=== PATIENT | male | born 1950 | race Caucasian/White ===

== ENCOUNTER 2017-05-12 06:54 | Emergency (ER) | payer MEDICARE, BC ==
[2017-05-12] MEDS ORDERED: Nitroglycerin 0.4 MG TAB (25 Tab Bottle) ONE (07:07)
[2017-05-12] MEDS ORDERED: Nitroglycerin 2% Ointment 1 INCH/1 GM Packet ONE ×2 (07:22→07:23)
[2017-05-12 07:32] LABS: ALT (SGPT) 20 U/L (8-55); AST (SGOT) 18 U/L (5-34); Alkaline Phosphatase 104 U/L (40-150); Anion Gap 13 mmol/L (10-20); BUN (Urea Nitrogen) 11 mg/dL (8.4-25.7); Bilirubin, Total 0.8 mg/dL (0.2-1.2); Calc. Creatinine Clearance 0 mL/min (70-130); Calcium 9.5 mg/dL (7.8-10.44); Carbon Dioxide 26 mmol/L (23-31); Chloride 104 mmol/L (98-107); Estimated GFR-MDRD 80; Globulin 3.3 g/dL (2.4-3.5); Glucose 111 mg/dL (80-115); Potassium 3.9 mmol/L (3.5-5.1); Protein, Total 7.3 g/dL (5.8-8.1); Sodium 139 mmol/L (136-145)
[2017-05-12 07:34] LABS: Troponin I Less than 0.010 ng/mL (< 0.028)
[2017-05-12 07:40] LABS: Hemoglobin 15.9 g/dL (14.0-18.0); Mean Corpuscular HGB CONC 37.3 g/dL (32.0-36.0); Mean Corpuscular Hemoglobin 34.3 pg (27.0-31.0); Mean Platelet Volume 9.8 fL (7.4-10.4); Platelet Count 168 thou/uL (130-400); Red Blood Cell (RBC) Count 4.65 mill/uL (4.70-6.10); White Blood Cell (WBC) Count 5.8 thou/uL (4.8-10.8)
[2017-05-12 08:02] LABS: #Basophils 0.1 thou/uL (0.0-0.2); #Eosinphils 0.1 thou/uL (0.0-0.7); #Lymphocytes 1.7 thou/uL (1.20-3.40); #Monocytes 0.5 thou/uL (0.11-0.59); #Neutrophils 3.4 thou/uL (1.40-6.50); %Basophils 1.5 % (0.0-1.0); %Eosinophils 1.4 % (0.0-10.0); %Lymphocytes 29.3 % (21.0-51.0); %Monocytes 8.7 % (0.0-10.0); %Neutrophils 59.2 % (42.0-75.0); Anisocytosis SLIGHT = 6-15 cells (100X) (0-5/hpf); MDiff Complete? YES
--- NOTE | 2017-05-12 09:47 | RAD ---
PORTABLE CHEST: Date: 05-12-17 Time: 0659 Comparison: 10-10-12 FINDINGS: The heart is normal in size. There has been prior surgery as evidenced by median sternotomy sutures. Dense calcification is seen in the aortic arch. There is no vascular congestion, edema, or pleural ef fusion. There is a slight amount of linear streaking in the left base. It seems more likely atelectas is than not, though a true infiltrate is not excluded. Correlate with clinical exam and history. IMPRESSION: Minor left basilar streaking thought to be more likely atelectasis than not. See above. POS: HOME
[2017-05-12 10:28] LABS: Troponin I Less than 0.010 ng/mL (< 0.028)
== END 2017-05-12 10:52 | disposition home or self-care (01) ==
LOC: BURERS 06:54
DX: M79.601 Pain in right arm (principal); E78.5 Hyperlipidemia, unspecified; I10 Essential (primary) hypertension
CPT/HCPCS: 36415; 71045; 80053; 82553; 84484; 85025; 93005

== ENCOUNTER 2018-06-25 08:59 | Outpatient (CLI) | payer MEDICARE, BC ==
--- NOTE | 2018-06-25 17:40 | ULT ---
ABDOMINAL AORTA ULTRASOUND 06/25/18 Ultrasonography of the abdominal aorta was performed. There is some slight dilation of the distal abd ominal aorta prior to the bifurcation. Measurements by level are provided below: Proximal aorta: 2.0 x 1.8 cm. Mid aorta: 1.7 x 1.7 cm. Distal aorta: 2.1 x 2.4 cm. The bifurcation was unremarkable and blood flow was seen in the iliac arteries. IMPRESSION: Slight dilation of the distal abdominal aorta (maximum width 2.4 cm) which could represent early mini mal aneurysm formation. The current measurement is not concerning. I would recommend a yearly follow- up scan to recheck the area. POS: HOME
--- NOTE | 2018-06-25 17:51 | CT ---
CT OF THE ABDOMEN WITH CONTRAST 06/25/[address] of the abdomen and pelvis was done after injection of IV contrast. Axial slices were acquir ed, followed by coronal and sagittal reconstructions. The lung bases show some scarring and atelectasis. There are no effusions. The liver is normal in size but contains a 7.0 x 2.7 cm cyst in the anterior part of the medial right lobe. The gallbladder is generous in size measuring just over 8 cm in length, but no stones or wall thickening was seen associated with it. The pancreas, spleen, and adrenal glands appeared normal. No mass or hydronephrosis was seen in the kidneys. The abdominal aorta transiently dilates in its distal portion a few centimeters below the renal arter ies. As this scan does not include the pelvis, one only sees the proximal iliac arteries. The right c ommon iliac artery was normal in size. The left common iliac was 2.0 cm in diameter which is slightly larger. The celiac artery fills normally. The SMA fills normally but has a rather large amount of ca lcified plaque in its proximal most portions. Some plaque is seen at the origin of the right renal ar melissa. The BRENT fills. The visible portions of the bowel showed no wall thickening, dilation, or acute changes of concern. IMPRESSION: 1. Somewhat generous sized gallbladder which may or may not be significant. If the patient has s igns and symptoms of gallbladder dysfunction, then a HIDA scan might be helpful. 2. Large hepatic cyst. 3. Quite a bit of calcified plaque in the proximal portions of the SMA, though currently the SMA branches appear to fill adequately. 4. 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 Maximal wid th is only 2.4 cm at this length. Yearly follow-up suggested. POS: HOME
== END 2018-06-25 09:00 | disposition home or self-care (01) ==
LOC: BURCT 08:59
PROVIDERS: ATTEND Family Medicine
DX: I71.4 Abdominal aortic aneurysm, without rupture (principal); R10.13 Epigastric pain; K76.89 Other specified diseases of liver; K55.1 Chronic vascular disorders of intestine
CPT/HCPCS: 74160; 76706

== ENCOUNTER 2018-11-27 00:25 | Emergency (ER) | payer MEDICARE, BC ==
[2018-11-27 01:03] LABS: #Basophils 0.1 thou/uL (0.0-0.2); #Lymphocytes 1.1 thou/uL (1.20-3.40); #Monocytes 0.8 thou/uL (0.11-0.59); #Neutrophils 7.7 thou/uL (1.40-6.50); %Basophils 0.9 % (0.0-1.0); %Eosinophils 0.4 % (0.0-10.0); %Lymphocytes 11.2 % (21.0-51.0); %Monocytes 8.2 % (0.0-10.0); %Neutrophils 79.3 % (42.0-75.0); Hemoglobin 14.9 g/dL (14.0-18.0); Mean Corpuscular HGB CONC 34.7 g/dL (32.0-36.0); Mean Corpuscular Hemoglobin 32.3 pg (27.0-31.0); Mean Corpuscular Volume 93.2 fL (78.0-98.0); Mean Platelet Volume 9.2 fL (7.4-10.4); Platelet Count 189 thou/uL (130-400); RBC Distribution Width 11.5 % (11.5-14.5); White Blood Cell (WBC) Count 9.7 thou/uL (4.8-10.8)
[2018-11-27 01:15] LABS: ALT (SGPT) 24 U/L (8-55); AST (SGOT) 25 U/L (5-34); Albumin 4.1 g/dL (3.4-4.8); Alkaline Phosphatase 97 U/L (40-110); Anion Gap 20 mmol/L (10-20); BUN (Urea Nitrogen) 9 mg/dL (8.4-25.7); Bilirubin, Total 1.5 mg/dL (0.2-1.2); Calc. Creatinine Clearance 0 mL/min (70-130); Calcium 10.2 mg/dL (7.8-10.44); Carbon Dioxide 23 mmol/L (23-31); Chloride 101 mmol/L (98-107); Estimated GFR-MDRD Greater than 90; Globulin 3.9 g/dL (2.4-3.5); Glucose 109 mg/dL (80-115); Potassium 3.6 mmol/L (3.5-5.1); Sodium 140 mmol/L (136-145)
[2018-11-27] MEDS ORDERED: Phenylephrine HCL 10 MG/ML VIAL ONE (01:28)
[2018-11-27] MEDS ORDERED: Oxymetazoline HCl 0.05% (30 ML BOT) ONE (01:29)
--- NOTE | 2018-11-27 07:47 | RAD ---
PORTABLE CHEST: DATE: 11/27/2018. FINDINGS: An AP portable film at 0044 is compared with a 05/12/2017 study. The heart is normal in size. There is no vascular congestion, edema, or pleural effusion. Calcific changes are seen in the aortic arch and median sternotomy sutures gini prior surgery. There is no ma bimal infiltrate present. Some minimal linear streaking in the left base may be atelectasis. IMPRESSION: No acute findings. POS: HOME
== END 2018-11-27 01:33 | disposition home or self-care (01) ==
LOC: BURERS 00:25
DX: R09.81 Nasal congestion (principal); E78.5 Hyperlipidemia, unspecified; I10 Essential (primary) hypertension; Z79.899 Other long term (current) drug therapy; Z79.891 Long term (current) use of opiate analgesic; Z79.82 Long term (current) use of aspirin
CPT/HCPCS: 71045; 80053; 85025; 85379; J2370